=== PATIENT | female | born 1980 | race Caucasian/White ===

== ENCOUNTER 2017-07-17 12:29 | Emergency (ER) | payer BC ==
[~2017-07-17] VITALS: Ht 167.6 cm; Wt 132.0 kg
[~2017-07-17 12:29] MED LIST: AMOXICILLIN500 MG PO; INTEGRA F PO; KEFLEX500 MG PO; LORTAB 5 OR; NO HOME MEDS; PRENATAL1 TAB PO
[2017-07-17 14:02] LABS: INFLUENZA A POSITIVE (NONE DETECT); INFLUENZA B NONE DETECTED (NONE DETECT)
[2017-07-17] MEDS ORDERED: TAM75CAP PO (14:44)
[2017-07-17 15:00] VITALS: BP 144/94
== END 2017-07-17 15:00 | disposition home or self-care (01) | DRG 153 ==
LOC: ED 12:29
PROVIDERS: Family Medicine
DX: J11.1 Influenza due to unidentified influenza virus with other respiratory manifestations (principal); J34.89 Other specified disorders of nose and nasal sinuses; R05 Cough; R09.81 Nasal congestion; R50.9 Fever, unspecified; R11.0 Nausea; M79.1 Myalgia

== ENCOUNTER 2020-06-25 23:13 | Emergency (ER) | payer BC ==
[~2020-06-25] VITALS: Ht 167.6 cm; Wt 132.0 kg
[~2020-06-25 23:13] MED LIST changes: +TAM75CAP PO
[2020-06-25 23:51] LABS: HEMATOCRIT 38.3 % (37.0-47.0); HEMOGLOBIN 12.6 g/dl (12.0-16.0); IMMATURE GRANULOCYTES 0.3 % (0.0-5.0); MEAN CELL VOLUME 87.2 fL CALC (80.0-100.0); MEAN CORPUSCULAR HGB 28.7 pG CALC (26.0-32.0); MEAN CORPUSCULAR HGB CONC 32.9 g/dL CAL (32.0-36.0); NEUT# 7.39 thou/uL (2.00-7.15); RED BLOOD COUNT 4.39 mill/uL (4.20-5.60); RED CELL DISTRI WIDTH 14.2 % (11.5-15.5)
[2020-06-26 00:14] LABS: ALKALINE PHOSPHATASE 71 u/l (38-126); BILIRUBIN, TOTAL 0.2 mg/dL (0.0-1.4); BUN 13 mg/dL (7-17); BUN/CREATININE RATIO 17 (12-20 (CALC)); CHLORIDE 106 mmol/l (95-108); CREATININE 0.7 mg/dL (0.5-1.0); GFR > 60 ML/MIN (>=60 (CALC)); GFR FOR AFR.AMER. > 60 ML/MIN (>=60 (CALC)); POTASSIUM 3.7 mmol/l (3.5-5.1); SGOT/AST 17 u/l (14-36); SODIUM 140 mmol/l (137-146); TOTAL PROTEIN 7.4 g/dL (6.3-8.2)
[2020-06-26 00:15] VITALS: BP 185/90
[2020-06-26 00:15] LABS: ALBUMIN 4.4 g/dL (3.2-5.0); ANION GAP 12 (6-22 (CALC)); CARBON DIOXIDE 26 mmol/l (22-30)
[2020-06-26 00:30] LABS: INTERNATIONAL NORMALIZED RATIO 0.9 RATIO (0.7-1.3); PROTHROMBIN TIME 9.3 SECONDS (9.0-12.5)
[2020-06-26 00:46] LABS: D-DIMER 0.17 mg/L (0.19-0.60)
== END 2020-06-26 01:03 | disposition home or self-care (01) | DRG 556 ==
LOC: ED 23:13
PROVIDERS: Family Medicine
DX: M79.662 Pain in left lower leg (principal); E66.9 Obesity, unspecified

== ENCOUNTER 2021-12-30 15:03 | Observation (INO) | payer BC ==
[2021-12-30] VITALS (31 sets, daily range): BP systolic 143–212; BP diastolic 78–128
[~2021-12-30] VITALS: Ht 167.6 cm; Wt 141.0 kg
[2021-12-30 16:23] LABS: IMMATURE GRANULOCYTES 0.5 % (0.0-5.0); MEAN CORPUSCULAR HGB 22.8 pG CALC (26.0-32.0); MEAN CORPUSCULAR HGB CONC 28.7 g/dL CAL (32.0-36.0); NEUT# 8.93 thou/uL (2.00-7.15); RED BLOOD COUNT 2.54 mill/uL (4.20-5.60); RED CELL DISTRI WIDTH 15.6 % (11.5-15.5)
[2021-12-30 16:30] LABS: HEMATOCRIT 20.2 % (37.0-47.0); HEMOGLOBIN 5.8 g/dl (12.0-16.0); INTERNATIONAL NORMALIZED RATIO 0.9 RATIO (0.7-1.3); MEAN CELL VOLUME 79.5 fL CALC (80.0-100.0); PROTHROMBIN TIME 9.5 SECONDS (9.0-12.5)
[2021-12-30 16:37] LABS: ALBUMIN 4.2 g/dL (3.2-5.0); ALKALINE PHOSPHATASE 88 u/l (38-126); ANION GAP 12 (6-22 (CALC)); BUN 12 mg/dL (7-17); BUN/CREATININE RATIO 15 (12-20 (CALC)); CARBON DIOXIDE 24 mmol/l (22-30); CHLORIDE 105 mmol/l (95-108); CREATININE 0.8 mg/dL (0.5-1.0); GFR FOR AFR.AMER. > 60 ML/MIN (>=60 (CALC)); GFR OTHER RACES > 60 ML/MIN (>=60 (CALC)); LIPASE 103 u/l (23-300); POTASSIUM 3.6 mmol/l (3.5-5.1); SGOT/AST 20 u/l (14-36); SODIUM 138 mmol/l (137-146); TOTAL PROTEIN 7.6 g/dL (6.3-8.2)
[2021-12-30 16:38] LABS: BILIRUBIN, TOTAL 0.3 mg/dL (0.0-1.4)
[2021-12-30 16:48] LABS: MYOGLOBIN 18 ng/mL (0 - 62)
[2021-12-30 17:47] LABS: URINE BILIRUBIN - DIPSTICK NEGATIVE (NEGATIVE); URINE BLOOD DIPSTICK TRACE-INTACT (NEGATIVE); URINE COLOR YELLOW; URINE GLUCOSE - DIPSTICK NEGATIVE (NEGATIVE); URINE KETONE NEGATIVE (NEGATIVE); URINE LEUK ESTERASE NEGATIVE (NEGATIVE); URINE PROTEIN - DIPSTICK NEGATIVE (NEG-TRACE); URINE UROBILINOGEN - DIPSTICK 0.2 E.U./dL (0.2)
[2021-12-30 17:49] LABS: URINE NITRITE - DIPSTICK NEGATIVE (Negative)
[2021-12-31 00:54] VITALS: BP 174/105; BP 187/92
[2021-12-31 03:53] VITALS: BP 162/86
[2021-12-31 06:34] LABS: HEMATOCRIT 24.8 % (37.0-47.0); HEMOGLOBIN 7.5 g/dl (12.0-16.0); MEAN CELL VOLUME 81.3 fL CALC (80.0-100.0); MEAN CORPUSCULAR HGB 24.6 pG CALC (26.0-32.0); MEAN CORPUSCULAR HGB CONC 30.2 g/dL CAL (32.0-36.0); RED BLOOD COUNT 3.05 mill/uL (4.20-5.60); RED CELL DISTRI WIDTH 15.2 % (11.5-15.5)
[2021-12-31 07:14] VITALS: BP 145/82
[2021-12-31 07:16] LABS: ANION GAP 13 (6-22 (CALC)); BUN 7 mg/dL (7-17); BUN/CREATININE RATIO 11 (12-20 (CALC)); CARBON DIOXIDE 22 mmol/l (22-30); CHLORIDE 106 mmol/l (95-108); CREATININE 0.6 mg/dL (0.5-1.0); GFR FOR AFR.AMER. > 60 ML/MIN (>=60 (CALC)); GFR OTHER RACES > 60 ML/MIN (>=60 (CALC)); POTASSIUM 3.8 mmol/l (3.5-5.1); SODIUM 137 mmol/l (137-146)
[2021-12-31] MEDS ORDERED: FE TABS325 MG PO (10:32)
[2021-12-31] MEDS ORDERED: NORVASC10 M1 PO (10:51)
[2021-12-31 11:36] VITALS: BP 161/96
== END 2021-12-31 15:15 | disposition home or self-care (01) | DRG 812 ==
LOC: ED 15:03 → ED-I 18:30 → ED 19:09 → MS2 19:10
PROVIDERS: Nurse Practitioner; ADMIT Hospitalist; ATTEND Hospitalist
PROC: 30233N1 Transfusion of Nonautologous Red Blood Cells into Peripheral Vein, Percutaneous Approach (ICD-10-PCS; principal; 2021-12-30)
PROC: 30233N1 Transfusion of Nonautologous Red Blood Cells into Peripheral Vein, Percutaneous Approach (ICD-10-PCS; 2021-12-30)
DX: D50.0 Iron deficiency anemia secondary to blood loss (chronic) (principal); N92.1 Excessive and frequent menstruation with irregular cycle; I10 Essential (primary) hypertension; Z20.822 Contact with and (suspected) exposure to COVID-19
CPT/HCPCS: G0378; P9016

== ENCOUNTER 2024-09-24 05:55 | Emergency (ER) | payer BC ==
[~2024-09-24] VITALS: Ht 167.6 cm; Wt 131.0 kg
[~2024-09-24 05:55] MED LIST changes: +FE TABS325 MG PO; +NORVASC10 M1 PO
[2024-09-24] MEDS ORDERED: SODIUM CHLORIDE 0.9% 1,000 ML IV ONE (06:30)
[2024-09-24 06:51] LABS: BASO% 0.2 % (0-3); EOS% 0.8 % (0-8); IMMATURE GRANULOCYTES 0.4 % (0.0-5.0); LYMPH% 19.1 % (15-41); MEAN CORPUSCULAR HGB 29.4 pG CALC (26.0-32.0); MEAN CORPUSCULAR HGB CONC 33.7 g/dL CAL (32.0-36.0); MONO% 4.4 % (2-13); NEUT# 7.44 thou/uL (2.00-7.15); NEUT% 75.1 % (42-76); RED BLOOD COUNT 4.59 mill/uL (4.20-5.60); RED CELL DISTRI WIDTH 14.3 % (11.5-15.5)
[2024-09-24 06:55] LABS: HEMATOCRIT 40.1 % (37.0-47.0); HEMOGLOBIN 13.5 g/dl (12.0-16.0); MEAN CELL VOLUME 87.4 fL CALC (80.0-100.0)
[2024-09-24 07:06] LABS: ALBUMIN 4.1 g/dL (3.2-5.0); ALKALINE PHOSPHATASE 80 u/l (38-126); ANION GAP 11 (6-22 (CALC)); BILIRUBIN, TOTAL 0.4 mg/dL (0.02-1.3); BUN 12 mg/dL (7-17); BUN/CREATININE RATIO 19 (12-20 (CALC)); CARBON DIOXIDE 25 mmol/l (22-30); CHLORIDE 106 mmol/l (95-108); CREATININE 0.6 mg/dL (0.5-1.0); ESTIMATED GFR 113 ML/MIN (>=90 (CALC)); POTASSIUM 3.7 mmol/l (3.5-5.1); SGOT/AST 27 u/l (14-36); SODIUM 138 mmol/l (137-146); TOTAL PROTEIN 7.3 g/dL (6.3-8.2)
[2024-09-24 07:12] LABS: ACT PARTIAL THROMBO TIME 30.5 SECONDS (20.0-32.5); D-DIMER 0.11 mg/L (0.19-0.60); INTERNATIONAL NORMALIZED RATIO 0.9 RATIO (0.7-1.3); PROTHROMBIN TIME 9.6 SECONDS (9.0-12.5)
[2024-09-24] MEDS ORDERED: LORazepam 2 MG/ML IV ONE (07:40)
[2024-09-24] MEDS ORDERED: hydrALAZINE HCL 20 MG/ML VIAL(1 ML) IV ONE (08:55)
[2024-09-24] MEDS ORDERED: HYDROCHLOROT25 MG PO (09:58)
[2024-09-24 10:10] VITALS: BP 175/99
== END 2024-09-24 10:39 | disposition home or self-care (01) | DRG 310 ==
LOC: ED 05:55
PROVIDERS: Family Medicine
DX: R00.2 Palpitations (principal); I10 Essential (primary) hypertension; F41.9 Anxiety disorder, unspecified; Z85.89 Personal history of malignant neoplasm of other organs and systems
CPT/HCPCS: J0360; J2060

== ENCOUNTER 2024-09-25 10:05 | Observation (INO) | payer BC ==
[~2024-09-25] VITALS: Ht 167.6 cm; Wt 110.0 kg
[2024-09-25] VITALS (17 sets, daily range): BP systolic 155–247; BP diastolic 84–135
[~2024-09-25 10:05] MED LIST changes: +HYDROCHLOROT25 MG PO
[2024-09-25 10:25] LABS: BASO% 0.1 % (0-3); EOS% 0.5 % (0-8); HEMATOCRIT 43.9 % (37.0-47.0); HEMOGLOBIN 14.2 g/dl (12.0-16.0); IMMATURE GRANULOCYTES 0.2 % (0.0-5.0); LYMPH% 17.1 % (15-41); MEAN CELL VOLUME 89.4 fL CALC (80.0-100.0); MEAN CORPUSCULAR HGB 28.9 pG CALC (26.0-32.0); MEAN CORPUSCULAR HGB CONC 32.3 g/dL CAL (32.0-36.0); MONO% 4.2 % (2-13); NEUT# 11.58 thou/uL (2.00-7.15); NEUT% 77.9 % (42-76); RED BLOOD COUNT 4.91 mill/uL (4.20-5.60); RED CELL DISTRI WIDTH 14.2 % (11.5-15.5)
[2024-09-25 10:35] LABS: ALBUMIN 4.9 g/dL (3.2-5.0); ALKALINE PHOSPHATASE 95 u/l (38-126); ANION GAP 13 (6-22 (CALC)); BUN 10 mg/dL (7-17); BUN/CREATININE RATIO 15 (12-20 (CALC)); CARBON DIOXIDE 26 mmol/l (22-30); CHLORIDE 102 mmol/l (95-108); CREATININE 0.6 mg/dL (0.5-1.0); ESTIMATED GFR 113 ML/MIN (>=90 (CALC)); POTASSIUM 3.6 mmol/l (3.5-5.1); SGOT/AST 29 u/l (14-36); SODIUM 137 mmol/l (137-146); TOTAL PROTEIN 8.6 g/dL (6.3-8.2)
[2024-09-25 10:36] LABS: BILIRUBIN, TOTAL 0.7 mg/dL (0.02-1.3)
[2024-09-25 10:38] LABS: CALCULATED LDLCHOLESTEROL 54 mg/dL (62-129 (CALC)); CHOLESTEROL HDL RATIO 1.8 (<4.4 (CALC)); HDL CHOLESTEROL 99 mg/dL (39.0-59.0); TOTAL CHOLESTEROL 180 mg/dl (0-199); TOTAL TRIGLYCERIDES 135 mg/dl (0-149); VLDL CHOLESTROL 27 mg/dl (1-41 (CALC))
[2024-09-25 10:42] LABS: INTERNATIONAL NORMALIZED RATIO 0.9 RATIO (0.7-1.3)
[2024-09-25 10:48] LABS: PROTHROMBIN TIME 9.6 SECONDS (9.0-12.5)
[2024-09-25 11:20] LABS: URINE BILIRUBIN - DIPSTICK Negative (NEGATIVE); URINE BLOOD DIPSTICK Negative (NEGATIVE); URINE GLUCOSE - DIPSTICK Negative (NEGATIVE); URINE KETONE Negative (NEGATIVE); URINE LEUK ESTERASE Negative (NEGATIVE); URINE NITRITE - DIPSTICK Negative (Negative); URINE PROTEIN - DIPSTICK Negative (NEG-TRACE); URINE UROBILINOGEN - DIPSTICK 0.2 E.U./dL (0.2)
[2024-09-25 11:29] LABS: URINE COLOR Yellow
[2024-09-25] MEDS ORDERED: LABETALOL HCL 20 MG/ 4 ML CARTRG IV ONE (11:45)
[2024-09-25] MEDS ORDERED: ACETAMINOPHEN 325 MG/TAB PO PRN (12:50)
[2024-09-25] MEDS ORDERED: MAGNESIUM HYDROXIDE 30 ML UDC PO PRN (12:50)
[2024-09-25] MEDS ORDERED: MIDAZOLAM HCL 2 MG/2 ML VIAL IV PRN (14:50)
[2024-09-25] MEDS ORDERED: hydrALAZINE HCL 20 MG/ML VIAL(1 ML) IV PRN (14:50)
[2024-09-25] MEDS ORDERED: amLODIPine BESYLATE 5 MG/TAB PO SCH (15:30)
[2024-09-25] MEDS ORDERED: Zaleplon 5 MG/CAP PO PRN (21:00)
[2024-09-25] MEDS ORDERED: ENOXAPARIN SODIUM 40 MG/0.4 ML SYR SC SCH (21:00)
[2024-09-26] VITALS (10 sets, daily range): BP systolic 151–180; BP diastolic 80–108
[2024-09-26 06:26] LABS: ALBUMIN 4.1 g/dL (3.2-5.0); BILIRUBIN, TOTAL 0.7 mg/dL (0.02-1.3); CREATININE 0.7 mg/dL (0.5-1.0); POTASSIUM 3.9 mmol/l (3.5-5.1)
[2024-09-26 06:29] LABS: BASO% 0.2 % (0-3); EOS% 0.8 % (0-8); HEMATOCRIT 39.6 % (37.0-47.0); HEMOGLOBIN 13.4 g/dl (12.0-16.0); IMMATURE GRANULOCYTES 0.3 % (0.0-5.0); LYMPH% 19.2 % (15-41); MEAN CELL VOLUME 88.2 fL CALC (80.0-100.0); MEAN CORPUSCULAR HGB 29.8 pG CALC (26.0-32.0); MEAN CORPUSCULAR HGB CONC 33.8 g/dL CAL (32.0-36.0); MONO% 5.5 % (2-13); NEUT# 7.63 thou/uL (2.00-7.15); RED BLOOD COUNT 4.49 mill/uL (4.20-5.60); RED CELL DISTRI WIDTH 14.3 % (11.5-15.5)
[2024-09-26] MEDS ORDERED: ASPIRIN EC 81 MG/TAB PO SCH (09:00)
[2024-09-26] MEDS ORDERED: LOSARTAN Potassium 50 MG/TAB PO SCH (11:00)
[2024-09-26] MEDS ORDERED: AMLODIPINE BESYL5 MG PO (13:51)
[2024-09-26] MEDS ORDERED: LOSARTAN POTASS50 MG PO (13:52)
[2024-09-26] MEDS ORDERED: ADLT ASA LOW81 MG PO (13:52)
== END 2024-09-26 15:18 | disposition home or self-care (01) | DRG 149 ==
LOC: ED 10:05 → ED-I 11:48 → ED 12:15 → MS2 12:16
PROVIDERS: Family Medicine; Nurse Practitioner Family; ADMIT Internal Medicine; ATTEND Internal Medicine
DX: R42 Dizziness and giddiness (principal); I10 Essential (primary) hypertension; R00.2 Palpitations; E66.01 Morbid (severe) obesity due to excess calories; Z85.89 Personal history of malignant neoplasm of other organs and systems; Z92.21 Personal history of antineoplastic chemotherapy; Z92.3 Personal history of irradiation
CPT/HCPCS: G0378; J0360; J1650; Q9967